=== PATIENT | female | born 1950 | race Caucasian/White ===

== ENCOUNTER 2017-01-04 11:19 | Emergency (ER) | payer OTHER ==
[~2017-01-04] VITALS: Ht 167.6 cm; Wt 85.0 kg
[~2017-01-04 11:19] MED LIST: ASPI-664 PO; LEVO500T72 PO; NEBI5TAB9 PO; OMEP20CA16 PO; PROP10TA6 PO; VALS160T20 PO
[2017-01-04 11:21] VITALS: Ht 167.6 cm; Wt 85.0 kg
[2017-01-04] MEDS ORDERED: IPRATROPIUM (NEB) 0.5 MG/2.5 ML AMP NEB STA (11:34)
[2017-01-04] MEDS ORDERED: ALBUTEROL 0.083% (NEB) 2.5 MG/3 ML AMP NEB STA (11:34)
[2017-01-04] MEDS ORDERED: LIDOCAINE 2% VISC 15 ML CUP PO ONE (12:00)
[2017-01-04 12:02] LABS: ADD SCAN DIFF NO
[2017-01-04 12:04] LABS: BASOPHILS % 0.5 % (0.0-2.0); EOSINOPHILS # 0.1 10^3/ul (0.0-0.5); EOSINOPHILS % 1.2 % (0.0-7.0); HEMATOCRIT 39.3 % (37.0-47.0); LYMPHOCYTES % 35.1 % (15.0-51.0); MEAN CORPUSCULAR HEMOGLOBIN 28.3 pg (29.0-33.0); MEAN CORPUSCULAR HGB CONC 33.1 g/dl (32.0-37.0); MEAN CORPUSCULAR VOLUME 85.6 fl (82.0-101.0); MEAN PLATELET VOLUME 10.1 fl (7.4-10.4); MONOCYTE # 0.6 10^3/ul (0.3-0.9); MONOCYTES % 7.5 % (0.0-11.0); NEUTROPHIL # 4.7 10^3/ul (1.6-7.5); NEUTROPHILS % 55.5 % (39.0-77.0); PLATELET COUNT 279 10^3/UL (140-415); RED BLOOD COUNT 4.59 10^6/ul (4.20-5.40); RED CELL DISTRIBUTION WIDTH 13.2 % (11.5-14.5); WHITE BLOOD COUNT 8.5 10^3/ul (4.8-10.8)
--- NOTE | 2017-01-04 12:15 | RADRPT ---
PROCEDURE: XR Chest. CLINICAL INDICATION: Chest pain TECHNIQUE: An AP view of the chest was obtained. COMPARISON: Chest x-ray dated 10/26/2015 FINDINGS: There is prominence of the interstitial markings. No pleural effusion or pneumothorax is seen. Th e cardiomediastinal silhouette is within normal limits for size. The osseous structures demonstrat e senescent changes. IMPRESSION: Mild prominence of the interstitial markings, may reflect mild underlying interstitial edema or lunchroom aide juvenal lung changes. No significant interval change. RPTAT: HH .Daphnie Jaramillo MD, MD Date Time Electronically viewed and signed by .Daphnie Jaramillo MD, MD on 01/04/2017 12:15 .G/
[2017-01-04 12:20] LABS: CHLORIDE 103 mmol/L (97-110); INR 0.89; POTASSIUM 3.8 mmol/L (3.5-5.1); PT RATIO 0.9; SODIUM 144 mmol/L (135-144)
[2017-01-04 12:21] LABS: PARTIAL THROMBOPLASTIN TIME 30.2 Sec (25.0-35.0)
[2017-01-04 12:22] LABS: CREATININE 0.69 mg/dl (0.44-1.00)
[2017-01-04 12:23] LABS: ANION GAP 19 (8-16); BLOOD UREA NITROGEN 12 mg/dl (7-20); CALCIUM 9.9 mg/dl (8.4-10.2); CARBON DIOXIDE 26 mmol/L (21-31); GLUCOSE 66 mg/dl (70-220)
[2017-01-04] MEDS ORDERED: ASPI-664 PO (12:31)
[2017-01-04] MEDS ORDERED: VALS80TA2 PO (12:32)
[2017-01-04] MEDS ORDERED: AMLO-147 PO (12:33)
[2017-01-04] MEDS ORDERED: PANT40TA4 PO (12:33)
[2017-01-04 12:37] LABS: TROPONIN-I < 0.012 ng/ml (0.00-0.12)
--- NOTE | 2017-01-04 12:55 | ERD ---
ER Documentation Chief Complaint Date/Time DATE: 01/04/17 TIME: 12:52 Chief Complaint C/O INTERMITTENT PALPITATIONS X 4 DAYS HPI This is a 67-year-old female who presents to the emergency room for evaluation of cough, congestion, throat pain for the past 4 days. She states that today she was coughing and felt her heart racing. The patient states that she has been coughing up green phlegm and states that this did occur last year around this time of year she was diagnosed with bronchitis which was relieved with antibiotics. The patient states that she is not taking any antibiotics at this time and denies any active chest pain or shortness of breath at this time. She states her shortness of breath only occurs when she coughs. ROS All systems reviewed and are negative except as per history of present illness. Medications Home Meds Reported Medications Amlodipine Besylate* (Amlodipine Besylate*) 10 Mg Tablet, 10 MG PO DAILY, #30 TAB 01/04/17 Pantoprazole* (Pantoprazole*) 40 Mg Tablet.dr, 40 MG PO AC BREAKFAST, TAB 01/04/17 Valsartan* (Diovan*) 80 Mg Tablet, 80 MG PO DAILY, TAB 01/04/17 Aspirin* (Aspirin* EC) 81 Mg Tablet.dr, 81 MG PO DAILY, TAB 01/04/17 Propranolol Hcl* (Propranolol Hcl*) 10 Mg Tablet, 10 MG PO BID, TAB 10/26/15 Discontinued Reported Medications Omeprazole* (Omeprazole*) 20 Mg Capsule.dr, 20 MG PO DAILY, #30 CAP 10/26/15 Nebivolol* (Bystolic*) 5 Mg Tab, 5 MG PO DAILY Y for ELEVATED BLOOD PRESSURE, # 30 TAB 10/26/15 Aspirin (Low Dose Aspirin) 81 Mg Tablet.dr, 81 MG PO DAILY, #30 TAB 10/26/15 Valsartan* (Diovan*) 160 Mg Tablet, 160 MG PO DAILY, TAB 10/26/15 Discontinued Scripts Levofloxacin* (Levaquin*) 500 Mg Tablet, 500 MG PO DAILY for 5 Days, TAB Prov:RICKY SANCHEZ V. CORN HUSK BALER 10/28/15 Allergies Allergies: Coded Allergies: No Known Allergy (Unverified , 01/04/17) PMhx/Soc History of Surgery: No Anesthesia Reaction: No Hx Neurological Disorder: No Hx Respiratory Disorders: No Hx Cardiac Disorders: Yes (HTN) Hx Psychiatric Problems: No Hx Miscellaneous Medical Probl: No Hx Alcohol Use: No Hx Substance Use: No Hx Tobacco Use: No Smoking Status: Unknown if ever smoked Physical Exam Vitals Vital Signs Date Time Temp Pulse Resp B/P Pulse Ox O2 Delivery O2 Flow Rate FiO2 01/04/17 11:51 Nasal Cannula 2 01/04/17 11:50 75 17 96 21 01/04/17 11:21 98.6 81 19 158/74 97 Physical Exam Const: No acute distress Head: Atraumatic Eyes: Normal Conjunctiva ENT: Normal External Ears, Nose and Mouth. Neck: Full range of motion..~ No meningismus. Resp: Mild end expiratory wheezing bilaterally Cardio: Regular rate and rhythm, no murmurs Abd: Soft, non tender, non distended. Normal bowel sounds Skin: No petechiae or rashes Back: No midline or flank tenderness Ext: No cyanosis, or edema Neur: Awake and alert Psych: Normal Mood and Affect Result Diagram: 01/04/17 1150 01/04/17 1150 Results 24 hrs Laboratory Tests Test 01/04/17 11:50 White Blood Count 8.510^3/ul Red Blood Count 4.5910^6/ul Hemoglobin 13.0g/dl Hematocrit 39.3% Mean Corpuscular Volume 85.6fl Mean Corpuscular Hemoglobin 28.3pg Mean Corpuscular Hemoglobin Concent 33.1g/dl Red Cell Distribution Width 13.2% Platelet Count 15480^3/UL Mean Platelet Volume 10.1fl Neutrophils % 55.5% Lymphocytes % 35.1% Monocytes % 7.5% Eosinophils % 1.2% Basophils % 0.5% Nucleated Red Blood Cells % 0.0/100WBC Neutrophils # 4.710^3/ul Lymphocytes # 3.010^3/ul Monocytes # 0.610^3/ul Eosinophils # 0.110^3/ul Basophils # 0.010^3/ul Nucleated Red Blood Cells # 0.010^3/ul Prothrombin Time 12.0Sec Prothrombin Time Ratio 0.9 INR International Normalized Ratio 0.89 Activated Partial Thromboplast Time 30.2Sec Sodium Level 144mmol/L Potassium Level 3.8mmol/L Chloride Level 103mmol/L Carbon Dioxide Level 26mmol/L Anion Gap 19 Blood Urea Nitrogen 12mg/dl Creatinine 0.69mg/dl Glucose Level 66mg/dl Calcium Level 9.9mg/dl Troponin I < 0.012ng/ml Current Medications Medications (Trade) Dose Ordered Sig/Marley Route PRN Reason Start Time Stop Time Status Last Admin Dose Admin Albuterol (Proventil 0.083% (Neb)) 5 mg ONCE STAT NEB 01/04/17 11:34 01/04/17 11:35 DC 01/04/17 11:47 Ipratropium [place] (Atrovent 0.02% (Neb)) 0.5 mg ONCE STAT NEB 01/04/17 11:34 01/04/17 11:35 DC 01/04/17 11:47 Lidocaine (Xylocaine (Viscous)) 15 ml ONCE ONCE PO 01/04/17 12:00 01/04/17 12:01 DC 01/04/17 11:50 Procedures/MDM EKG: Rate/Rhythm: [Normal Sinus Rhythm] QRS, ST, T-waves: [No changes consistent w/ acute ischemia] Impression: [No evidence of ischemia or arrhythmia] Chest X-ray 1V Interpreted by me: Soft Tissue: Mild prominence of the interstitial markings, may reflect mild underlying interstitial edema or chronic lung changes. No significant interval change. Bones: No acute abnormalities Mediastinum/Cardiac Silhouette/Lungs: [No acute abnormalities] This 67-year-old female presents to the emergency room for evaluation of a cough , sore throat, and nasal congestion. When I evaluated her she was not hypoxic, she was not tachycardic and was in no respiratory distress. Did auscultate mild wheezing. The patient was given a breathing treatment. Lab work was obtained including an EKG which was nonischemic, troponin which was negative. This patient has had her symptoms for 4 days. She states that last year at this time she was diagnosed with bronchitis and was treated with an unknown antibiotic for 5 days. Upon my reevaluation this patient is sitting in bed in no acute distress, pulse ox is 94% on room air. She states she is feeling much better after the breathing treatment. The patient will be discharged at this time with a prescription for azithromycin, and Pro Air inhaler. This patient's blood glucose is 66 however she is alert oriented to person place and time with no focal neurological deficits Departure Diagnosis: Primary Impression: Acute bronchitis Additional Impression: Cough with congestion of paranasal sinus Condition: Stable MANA GRANADO DO January 04, 2017 12:55
[2017-01-04] MEDS ORDERED: ALBU8.5H3 INH (12:56)
[2017-01-04] MEDS ORDERED: UDROBDM PO (12:56)
[2017-01-04] MEDS ORDERED: AZIT250T94 PO (12:56)
[2017-01-04] MEDS ORDERED: LID50L4 MM (13:30)
[2017-01-04 14:00] VITALS: BP 145/76; PULSE 74; RESP 20
== END 2017-01-04 14:01 | disposition home or self-care (01) ==
LOC: E/R 11:19
DX: J20.9 Acute bronchitis, unspecified (principal); R09.81 Nasal congestion; R05 Cough; I10 Essential (primary) hypertension; R07.9 Chest pain, unspecified; Z79.82 Long term (current) use of aspirin
CPT/HCPCS: 36415; 71010; 80048; 84484; 85025; 85610; 85730; 93005; 94664; Z7502; Z7610

== ENCOUNTER 2017-12-12 14:58 | Emergency (ER) | END 2017-12-12 17:40 | disposition home or self-care (01) ==

== ENCOUNTER 2018-02-12 17:11 | Emergency (ER) | END 2018-02-12 17:20 | disposition left against medical advice (07) ==